=== PATIENT | female | born 1980 | race Caucasian/White ===

== ENCOUNTER 2017-02-15 19:31 | Emergency (ER) | payer OTHER, SELFPAY ==
--- NOTE | 2017-02-15 21:56 | RAD ---
RIGHT ANKLE THREE VIEWS: Date: 02-15-17 FINDINGS: Some mild lateral swelling is present. There is a bony density at the pith of the medial malleolus t hat could be an old avulsion or in tendons from old injury. I cannot tell if this is new or old, but it seems more likely old. There is a little lucency in the dome of the talus laterally, but I canno t confirm an injury here with assurance. This area may need another look at some point. IMPRESSION: Possible old injury medially, more likely old than new. Mild lateral swelling. Follow up possibly ne eded. See above. POS: HOME
== END 2017-02-15 21:07 | disposition home or self-care (01) ==
LOC: BURERS 19:31
DX: S82.51XA Displaced fracture of medial malleolus of right tibia, initial encounter for closed fracture (principal); F17.210 Nicotine dependence, cigarettes, uncomplicated; X58.XXXA Exposure to other specified factors, initial encounter
CPT/HCPCS: 96372; J2270

== ENCOUNTER 2019-05-27 07:48 | Emergency (ER) | payer SELFPAY ==
--- NOTE | 2019-05-27 09:34 | RAD ---
RIGHT FOOT 3 VIEWS: Date: 05/27/19 No acute fracture or periosteal reaction seen. There probably was old trauma involving the anterior m edial portion of the distal tibia and perhaps the talus as well. Ankle films would show this better. IMPRESSION: Presumed old trauma at the tibiotalar joint. No acute findings. POS: HOME
== END 2019-05-27 08:27 | disposition home or self-care (01) ==
LOC: BURERS 07:48
DX: S90.31XA Contusion of right foot, initial encounter (principal); W54.1XXA Struck by dog, initial encounter; F17.210 Nicotine dependence, cigarettes, uncomplicated

== ENCOUNTER 2020-12-19 03:23 | Emergency (ER) | payer SELFPAY ==
[2020-12-19] MEDS ORDERED: HYDROcodone/Acetaminophen 10/325 mg Tablet ONE (03:44)
[2020-12-19 03:46] LABS: Bilirubin Negative (Negative); Blood, Urine Negative (Negative); Clarity Clear (Clear); Glucose, Urine (Dipstick) Negative (Negative); Ketone, Urine Negative (Negative); Leukocyte Negative (Negative); Nitrite Negative (Negative); Protein, Urine (Dipstick) Negative (Neg-Trace); Specific Gravity, Urine 1.025 (1.005-1.030); Urobilinogen 0.2 mg/dL (Less than 2)
[2020-12-19] MEDS ORDERED: HYDROcodone/Acetaminophen 5/325 mg Tablet ONE (03:46)
--- NOTE | 2020-12-19 07:34 | CT ---
PRELIMINARY REPORT/[facility]/EMERGENCY AFTER HOURS PROCEDURE: EXAM: CT Abdomen and Pelvis Without Intravenous Contrast CLINICAL HISTORY: Pain in lower back and abdomen for three weeks which worsened tonight. TECHNIQUE: Axial computed tomography images of the abdomen and pelvis without intravenous contrast. CONTRAST: None. COMPARISON: None provided. FINDINGS: LUNG BASES: No basilar airspace consolidation or pleural effusion. LIVER: Unremarkable. GALLBLADDER AND BILE DUCTS: Unremarkable. No calcified stone. No ductal dilation. PANCREAS: Unremarkable. SPLEEN: Unremarkable. ADRENAL GLANDS: Unremarkable. KIDNEYS, URETERS, AND BLADDER: Unremarkable. No hydronephrosis or nephrolithiasis. No ureteral or bladder calculi. STOMACH AND BOWEL: No obstruction. No wall thickening. No CT evidence of colitis or acute diverticulitis. Prominent amou nt of stool within the rectum. APPENDIX: No CT evidence for appendicitis. PERITONEUM: No free fluid. No free air. LYMPH NODES: No lymphadenopathy. REPRODUCTIVE: Cystic changes of the bilateral ovaries with possible hemorrhagic cyst versus corpus luteum on the ri ght and proximally 4.5 cm cyst associated with the left ovary, not well evaluated on this study. Unre markable appearance of the uterus. VASCULATURE: No aortic aneurysm. ABDOMINAL WALL AND SOFT TISSUES: Unremarkable. BONES: No fracture or suspicious osseous abnormality. IMPRESSION: 1. No evidence of urolithiasis, intestinal obstruction, perforation, or definite acute intra-abdomina l finding. 2. Bilateral cystic changes in the ovaries, uncertain if these relate to the patient's symptoms. Give n the size of the cystic structure within the left adnexa follow-up evaluation with pelvic ultrasound is recommended, more urgently if there is clinical suspicion for acute adnexal pathology. 3. Otherwise limited evaluation of the abdomen and pelvis given the lack of intravenous or enteric co ntrast. ELECTRONICALLY SIGNED BY: Cipriano Ochoa DO Dec 19, 2020 4:29:08 AM INTAKE COUNSELOR This report is intended for review by the ordering physician only, in accordance of law. If you recei ve this report in error, please call [facility] at [phone]. FINAL REPORT CT ABDOMEN AND PELVIS: Date: 12/19/[address] of the abdomen and pelvis was done for evaluation of left flank pain. Scans were done witho ut oral or IV contrast. The lung bases are clear. The liver, spleen, pancreas, gallbladder, adrenal glands, kidneys, and abdominal aorta appear normal within the limitations of a noncontrast study. There is no sign of gallstones, renal calculi, or uret eral calculi. There is no sign of urinary tract obstruction. The bowel shows no dilation or wall thickening. A moderate amount of fecal material is seen in the co [place]. The appendix is identified and appears normal. No free air or free fluid was seen. In the pelvis, there is a 4.4 cm rounded structure in the left adnexal region that is suspicious for a large ovarian cyst. There might be smaller changes in the right ovary, but it is difficult to be ce rtain given the surrounding nonopacified bowel. A pelvic ultrasound is needed for further evaluation. No free fluid is seen in the pelvis and no inflammatory changes are seen here. IMPRESSION: Probable large left ovarian cyst and possibly a smaller one on the right. Pelvic ultrasound recommend ed for further evaluation. Report in agreement with preliminary reading by [facility]. POS: HOME
== END 2020-12-19 04:52 | disposition home or self-care (01) ==
LOC: BURERS 03:23
DX: N83.202 Unspecified ovarian cyst, left side (principal); F17.210 Nicotine dependence, cigarettes, uncomplicated
CPT/HCPCS: 74176; 81003

== ENCOUNTER 2021-04-09 10:52 | Emergency (ER) | payer SELFPAY ==
[2021-04-09] MEDS ORDERED: Boostrix 0.5 ML (Tdap) VIAL ONE (11:20)
[2021-04-09] MEDS ORDERED: Ibuprofen 200 MG TAB ONE (11:20)
== END 2021-04-09 12:10 | disposition home or self-care (01) ==
LOC: BURERS 10:52
DX: S92.532A Displaced fracture of distal phalanx of left lesser toe(s), initial encounter for closed fracture (principal); Z71.6 Tobacco abuse counseling; Z23 Encounter for immunization; W20.8XXA Other cause of strike by thrown, projected or falling object, initial encounter
CPT/HCPCS: 90471; 90715; 99406